=== PATIENT | female | born 1940 | race Caucasian/White ===

== ENCOUNTER 2017-01-03 13:05 | Emergency (ER) | payer MEDICARE, OTHER ==
--- NOTE | 2017-01-03 13:36 | EDM.PDOC ---
ED HPI GENERAL MEDICAL PROBLEM - General Chief Complaint: Trauma Stated Complaint: Fall; Left hip pain Time Seen by Provider: 01/03/17 13:16 Source of Information: Reports: Patient, EMS, EMS Notes Reviewed, RN, RN Notes Reviewed History Limitations: Reports: No Limitations - History of Present Illness INITIAL COMMENTS - FREE TEXT/NARRATIVE: Patient is brought to the ED at [facility] via EMS after she fell, landing on her left hip. Patient states she was stepping off a curb trying to get into her vehicle, when she lost her balance and fell, onto her left hip. Patient complains of left hip pain that radiates down to the left knee. No previous injury or trauma. Patient denies any numbness, tingling, or paresthesia to any extremity. Patient denies hitting her head. No LOC. Onset: Today Onset Date: 01/03/17 Duration: Constant Location: Reports: Pelvis, Lower Extremity, Left Quality: Reports: Sharp, Stabbing Improves with: Reports: Rest Worsens with: Reports: Movement Context: Reports: Trauma Associated Symptoms: Reports: No Other Symptoms Treatments [employer]: Reports: See EMS Report Left Hip Pain Score (Numeric/FACES): 7 - Related Data Allergies Allergy/AdvReac Type Severity Reaction Status Date / Time metformin Allergy Nausea Verified 01/03/17 14:02 Home Meds: Home Meds Aspirin/Calcium Carbonate/Mag [Aspirin Buffered 325 mg Tab] 1 tab DAILY [History] Atenolol/Chlorthalidone [Tenoretic 50] 1 tab DAILY 04/20/14 [History] Calcium Carbonate/Vitamin D3 [Calcium 250+D] 2 each PO DAILY 04/20/14 [History] DULoxetine [Cymbalta] 1 tab DAILY 04/20/14 [History] Hydrocodone/Acetaminophen [Hydrocodon-Acetaminoph 7.5-300] 1 each PO Q6HR PRN [History] Lisinopril [Prinivil] 1 tab DAILY 04/20/14 [History] Magnesium 3 tab DAILY 04/20/14 [History] Multivitamin with Minerals [Multiple Vitamin] 1 tab PO DAILY 04/20/14 [History] Pravastatin [Pravachol] 1 tab DAILY 04/20/14 [History] Review of Systems - Review of Systems Review Of Systems: See Below Constitutional: Denies: Chills, Fever, Weakness Respiratory: Denies: Shortness of Breath, Cough Cardiovascular: Denies: Chest Pain, Palpitations GI/Abdominal: Denies: Abdominal Pain, Nausea, Vomiting Musculoskeletal: Reports: Leg Pain, Joint Pain, Muscle Pain, Muscle Stiffness, Other (Left hip pain) Skin: Reports: No Symptoms Neurological: Denies: Dizziness, Headache, Numbness, Paresthesia, Tingling ED EXAM, GENERAL - Physical Exam Exam: See Below Exam Limited By: No Limitations General Appearance: Alert, No Apparent Distress, Thin Head: Atraumatic, Normocephalic Neck: Supple Respiratory/Chest: No Respiratory Distress, Lungs Clear, Normal Breath Sounds Cardiovascular: Regular Rate, Rhythm Peripheral Pulses: 1+: Posterior Tibial (L), Posterior Tibial (R), Dorsalis Pedis (L), Dorsalis Pedis (R), 2+: Radial (L), Radial (R) GI/Abdominal: Soft, Non-Tender, Abnormal Bowel Sounds (Hypoactive). No: Pelvis Stable Extremities: Leg Pain, Limited Range of Motion, Increased Warmth, Other (Left hip pain with lateral deep palpation; no obvious bone deformity; No bruising; ) . No: Pedal Edema Neurological: Alert, Oriented Course - Vital Signs Last Recorded V/S: Last Vital Signs Temp 35.8 C 01/03/17 13:05 Pulse 74 01/03/17 13:05 Resp 16 01/03/17 13:05 BP 124/74 01/03/17 13:05 Pulse Ox 99 01/03/17 13:05 - Orders/Labs/Meds Orders: Active Orders 24 hr Category Date Time Status Hip Min 2V or 3V w Pelvis Lt [CR] Stat Exams 01/03/17 13:28 Taken Meds: Medications Discontinued Medications Generic Name Dose Route Start Last Admin Trade Name Freq PRN Reason Stop Dose Admin Morphine Sulfate 2 mg 01/03/17 14:21 01/03/17 14:34 Morphine IVPUSH 01/03/17 14:22 2 mg ONETIME ONE Administration - Radiology Interpretation Free Text/Narrative:: Xray of Left hip and Pelvis reveals an Impacted Subcapital fracture of the left hip See scanned report in EMR Departure - Departure Time of Disposition: 15:11 Disposition: DC/Tfer to Acute Hospital 02 Condition: Good Clinical Impression: Pain in left hip Subcapital fracture of hip Qualifiers: Encounter type: initial encounter Fracture type: closed Laterality: left Qualified Code(s): S72.012A - Unspecified intracapsular fracture of left femur, initial encounter for closed fracture Fall Qualifiers: Encounter type: initial encounter Qualified Code(s): W19.XXXA - Unspecified fall, initial encounter - Discharge Information Forms: Interfacility Transfer [facility] ED Communication - ED Communication Date/Time Date: 01/03/17 Time Called: 15:10 - Discussed Case With (1) Discussed Case With (1): Admitting Provider - Conversation Summary Admitting Provider Agreed to Patient's Admission: Yes Patient Aware of Amendments fo Care Plan: Yes Patient's POA/Guardian Aware of Amendments to Care Plan: Yes Summary Comment: Discussed case with Nani Cheng. Patient will need surgical intervention to fix left hip. Patient will be admitted to medicine team. Report given. - Problem List Review Problem List Initiated/Reviewed/Updated: Yes - My Orders Last 24 Hours: My Active Orders 01/03/17 13:28 Hip Min 2V or 3V w Pelvis Lt [CR] Stat - Assessment/Plan Last 24 Hours: My Active Orders 01/03/17 13:28 Hip Min 2V or 3V w Pelvis Lt [CR] Stat
[2017-01-03] MEDS ORDERED: Morphine 2 MG/ML Syringe IVPUSH ONE ×2 (14:21→16:08)
[2017-01-03 15:38] VITALS: BP 128/77
== END 2017-01-03 14:15 | disposition short-term general hospital (02) ==
LOC: VM.ED 13:05
DX: S72.012A Unspecified intracapsular fracture of left femur, initial encounter for closed fracture (principal); Z79.82 Long term (current) use of aspirin; Z79.899 Other long term (current) drug therapy; Z88.8 Allergy status to other drugs, medicaments and biological substances; W17.89XA Other fall from one level to another, initial encounter
CPT/HCPCS: 73502; 96374; 96376; 99284; 99285; J2270

== ENCOUNTER 2017-01-08 10:47 | Inpatient (IN) | payer MEDICARE, OTHER ==
[2017-01-08] MEDS ORDERED: Lactulose Soln 10 GM/15 ML 30 ML UD Cup PO PRN (12:55)
[2017-01-08] MEDS ORDERED: Acetaminophen 325 MG Tab PO PRN (12:55)
[2017-01-08] MEDS: Acetaminophen/HYDROcodone 325-5 MG Tab PO PRN ×2 (13:32→19:43)
--- NOTE | 2017-01-08 21:39 | HP ---
CHIEF COMPLAINT: Deconditioning post left hip surgery. SUMMARY OF ADMIT HISTORY AND PHYSICAL: Patient is a 76-year-old female, who sustained a left hip fracture by either going down a step on a curb versus hip fracturing before she landed on the ground. This had occurred on 01/03/2017. The patient was transferred to [facility] in [place]. She underwent a surgery on 01/04/2017 as they had to make certain that she had medical stability and she has known previous rods in her back. Postoperatively, the patient became quite weak. She did have a hemoglobin that dropped down to 7.1. She was transfused 2 units of packed RBCs. Her hemoglobin the next day was 7.0. Her hemoglobin went up to 9.1. The patient did not have any problems with chest pain. She did have some mild confusion. To note, patient prior to having fallen now had a previous fall that occurred in June to 07/2016. She fell and hit her head on the nightstand, is in bed for 2-3 days. She has chronic low back pain. Then, she had been at a basketball game in 09/2016, had a fall and hit her head again. Since then, she has had problems with some dizziness, some mild forgetfulness, and some headaches. She was seen in the outpatient clinic. She did undergo an MRI of her head on 12/31/2016, and at that time, it came back showing no acute intracranial process, some mild chronic vessel ischemic disease. Otherwise, the patient does have some chronic back pain due to her scoliosis, spinal stenosis that is present. The patient does have problems with skin tears and does have 1 on her left lower groin area that was present when she arrived here today. MEDICATION: She is currently on is acetaminophen 325 two pills every 4 hours as needed; hydrocodone acetaminophen 7.5/325 one every 4 hours as needed for moderate pain, two for severe pain; Lovenox 30 mg subcu daily for 24 additional days; lactulose 10 g per 15 mL, she takes 30 mL 3 times a day as needed for constipation; MiraLAX 1 packet daily; Senna Plus 1 pill twice a day; vitamin D 1000 units 1 pill daily; calcium carbonate 1250 mg 1 pill daily; lisinopril 5 mg 1 pill daily; aspirin with caffeine or Excedrin 1 pill a day as needed; multivitamin 1 pill a day; Pravachol 40 mg 1 pill a day; Cymbalta 60 mg 2 pills once a day; atenolol chlorthalidone 50/25 one pill a day; calcium with vitamin D 500/200 one pill a day; aspirin 325 one pill a day. ALLERGIES: Gabapentin, Glucophage. PAST MEDICAL HISTORY: The patient has hypertension, hyperlipidemia, type 2 diabetes mellitus. She has had gastric bypass. She has had osteoporosis. She had osteopenia in 2011 DEXA scan of her wrist. Due to gastric bypass, repeat DEXA in 2014, it was worse, so she was started on Prolia infusion, but the patient declined and she also declined endocrinology consult. The patient had chronic kidney disease stage 3. She has refused colonoscopies in 2013, 2014, 2015. She has had fibromyalgia, heart disease she coded she states in 2003. She has had a history of pulmonary embolism, hyperlipidemia, hypomagnesemia. She has had non rheumatic mitral regurgitation. Echocardiogram showed trace mitral regurgitation. Ejection fraction 75% in 2003. She had a normal negative Persantine stress test on 03/22/2008. She has had recurrent major depression. Spinal stenosis in her lumbar region on 06/30/2002. She has had left T12-L1 hemilaminectomy and facetectomy. She has had bilateral L1 inferior hemilaminectomies and left-sided facetectomy. She has had an L2 laminectomy with left facetectomy. She had an L1 laminectomy with left-sided facetectomy. She has had L4 laminectomy and right-sided facetectomy. She has had repair of 2 dural tears on L4-5. She has had a T12-L5 pedicle screw fusion. She has had a Medtronic SofGen9or DanClickability Legacy System pedicle screws at each level bilaterally. She has had T12-L5 posterior lateral arthrodesis and autograft bone and allograft bone locally from resected lamina and spinous processes. She has had T12, L1, L2, L3, L4, L5 vertebral augmentation with methylmethacrylate. She has had use of Cell Saver. She has had history of gastric bypass. PAST SURGICAL HISTORY: Anesthesia for hernia repairs. She has had an appendectomy and multiple back surgeries. She has had left cardiac cath in 1997 that was normal. She has had a cholecystectomy in 1977 and gastric bypass in 1977. She had a hysterectomy and a knee arthroscopy. FAMILY MEDICAL HISTORY: Mother had a stroke, hypertension, cancer, heart disease. Maternal grandmother had diabetes. Maternal grandmother had heart disease and hypertension and stroke. Daughters had obesity. Maternal grandmother has had obesity. Maternal grandfather had diabetes, heart disease, hypertension, heart problems. SOCIAL HISTORY: She is . 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 She has children. She has never smoked. Never consumed alcohol. She loves to visit with people. REVIEW OF SYSTEMS: She is having headache, some forgetfulness, change in vision. She does have pain of her left hip as well as have skin tears. Bowels have been regular with use of medications. No coughing, no chest pain. Does have chronic low back pain. No numbness or tingling of her feet. She has been feeling weak. She has occasionally been a little confused. OBJECTIVE: Vital signs: Show that her weight is 136 kg, her temperature is 36.5, pulse is 89, blood pressure 114/95, sats are 98%, respirations are 20. Skin: Pale, warm, and dry. She does have a tear on her left lower abdomen which is 6 cm long x 5 mm wide. No erythema. She has her left hip dressing that is covered minimal serosanguineous drainage. HEENT: Pharynx is normal. Pupils are equal and reactive to light. Neck: No carotid bruits. Heart: Regular rate and rhythm without murmurs or bruits. Lungs: Clear to auscultation. Back: Is kyphotic as well as scoliotic or I should say curved. Abdomen: Bowel sounds present, soft, nontender. Extremities: Lower extremities have no edema. No numbness. Moves all extremities symmetric. Neurologic: She has headaches. Psych: She appears little bit confused or forgetful, does appear little bit sad as well. IMPRESSION: 1. Left hip fracture, recovering from surgery. 2. Anemia secondary to blood loss. 3. Skin tear on left lower abdomen. 4. Headaches, post concussion. 5. Type 2 diabetes mellitus. 6. Osteoporosis. 7. Hypertension. 8. Hypomagnesemia. 9. Fibromyalgia. 10.Chronic low back pain. PLAN: The patient will be admitted to swing bed. She will receive PT/OT, will work with her pain control, her skin tear will cover and monitor and anticipate for her to be discharged home within the next few weeks. Her headaches does seem to be somewhat of a chronic concussive type headache. She may need eventual referral to Neurology for this. When talking about code level status with the patient, she is not certain what she would like to be. She thought she would not like to be resuscitated, but for right now, she would like full resuscitation, so therefore is code level 1 status. The patient will be placed on Lovenox for DVT prophylaxis for 24 days. She will follow up with Ortho. She will also follow up with [facility] to talk about treatment for osteoporosis, as with her previous gastric bypass, infusions may be more appropriate. GM01/08/2017 14:02:36 MODL: 01/08/2017 21:30:40 /[id number]
[2017-01-09] MEDS: Acetaminophen/HYDROcodone 325-5 MG Tab PO PRN ×4 (06:03→21:05)
[2017-01-09] MEDS: Lisinopril 5 MG Tab PO SCH (07:44)
[2017-01-09] MEDS: Multivitamins with Iron/Calcium/Folic Acid/Minerals Tab PO SCH (07:44)
[2017-01-09] MEDS: DULoxetine 60 MG Cap PO SCH (07:45)
[2017-01-09] MEDS: Aspirin 325 MG Tab.EC PO SCH (07:45)
[2017-01-09] MEDS: Enoxaparin 30 MG/0.3 ML Syringe SUBCUT SCH (07:46)
[2017-01-09] MEDS: Polyethylene Glycol 3350 Powder 17 GM Packet PO SCH (07:46)
[2017-01-09] MEDS: Simvastatin 20 MG Tab PO SCH (07:46)
[2017-01-09] MEDS: ATENOLOL PO SCH (11:27)
[2017-01-09] MEDS: CHLORTHALIDONE PO SCH (11:27)
[2017-01-10] MEDS: Acetaminophen/HYDROcodone 325-5 MG Tab PO PRN ×3 (07:53→20:59)
[2017-01-10] MEDS: DULoxetine 60 MG Cap PO SCH (07:54)
[2017-01-10] MEDS: Multivitamins with Iron/Calcium/Folic Acid/Minerals Tab PO SCH (07:54)
[2017-01-10] MEDS: Lisinopril 5 MG Tab PO SCH (07:54)
[2017-01-10] MEDS: Enoxaparin 30 MG/0.3 ML Syringe SUBCUT SCH (07:55)
[2017-01-10] MEDS: Aspirin 325 MG Tab.EC PO SCH (07:55)
[2017-01-10] MEDS: Simvastatin 20 MG Tab PO SCH (07:55)
[2017-01-10] MEDS: Polyethylene Glycol 3350 Powder 17 GM Packet PO SCH (07:55)
[2017-01-10] MEDS: ATENOLOL PO SCH (07:56)
[2017-01-10] MEDS: CHLORTHALIDONE PO SCH (07:56)
[2017-01-10] MEDS: Magnesium Oxide 400 MG Tab PO SCH (08:54)
--- NOTE | 2017-01-10 13:21 | PN ---
Progress Note for MANOLO BARRY Date: 01/10/2017 Room #: VM.206 SUBJECTIVE: The patient says she does have some pain. She comments that she is here for discharge home. She still needs to have some strengthening with PT. To note, patient has been pleasantly confused. She did have a urine check done that did come back negative for bladder infection. The patient has been taking hydrocodone 5 mg strength pill. OBJECTIVE: Vital Signs: Her temperature is 36.6, pulse 72, blood pressure is 143/84, sats are 99%, respiratory rate is 20 on room air. Skin: Her skin is pale, warm and dry. Cardiac: Her heart regular rate and rhythm. Lungs: Clear to auscultation. Abdomen: Bowel sounds present. Extremities: Her left hip is having just some serosanguineous drainage. She still has a skin tear on her left inguinal fold area. LABORATORY DATA: Lab work that was done today showed her hemoglobin at 8.6 which is felt to be stable, white blood cell count, platelet count normal. Sodium 142, potassium 3.6, creatinine 1.1, glucose 114, GFR is 49, and magnesium is low at 1.4. LFTs were normal. IMPRESSION: 1. Deconditioning post left hip fracture. 2. Anemia secondary to blood loss. 3. Skin tear in left abdominal skin fold. 4. Headaches post concussion. 5. Mild confusion. 6. Type 2 diabetes mellitus. 7. Hypertension. 8. Osteoporosis. 9. Hypomagnesemia. 10.Fibromyalgia. 11.Chronic low back pain. PLAN: We will continue with therapies for patient, did encourage her to stay as she will benefit by them. The patient had been placed on Lovenox for DVT prophylaxis. She is placed on magnesium pills for replacement and will continue therapies. GM01/10/2017 12:57:08 MODL: 01/10/2017 13:10:39 /[id number] ALEYDA
[2017-01-11] MEDS: Acetaminophen/HYDROcodone 325-5 MG Tab PO PRN ×3 (04:35→20:15)
[2017-01-11] MEDS: Magnesium Oxide 400 MG Tab PO SCH (07:59)
[2017-01-11] MEDS: DULoxetine 60 MG Cap PO SCH (07:59)
[2017-01-11] MEDS: Multivitamins with Iron/Calcium/Folic Acid/Minerals Tab PO SCH (08:00)
[2017-01-11] MEDS: Aspirin 325 MG Tab.EC PO SCH (08:00)
[2017-01-11] MEDS: Lisinopril 5 MG Tab PO SCH (08:00)
[2017-01-11] MEDS: Simvastatin 20 MG Tab PO SCH (08:01)
[2017-01-11] MEDS: Enoxaparin 30 MG/0.3 ML Syringe SUBCUT SCH (08:01)
[2017-01-11] MEDS: Polyethylene Glycol 3350 Powder 17 GM Packet PO SCH (08:02)
[2017-01-11] MEDS: ATENOLOL PO SCH (08:02)
[2017-01-11] MEDS: CHLORTHALIDONE PO SCH (08:02)
[2017-01-12] MEDS: Acetaminophen/HYDROcodone 325-5 MG Tab PO PRN ×4 (08:59→21:59)
[2017-01-12] MEDS: Multivitamins with Iron/Calcium/Folic Acid/Minerals Tab PO SCH (09:22)
[2017-01-12] MEDS: Magnesium Oxide 400 MG Tab PO SCH (09:22)
[2017-01-12] MEDS: Enoxaparin 30 MG/0.3 ML Syringe SUBCUT SCH (09:23)
[2017-01-12] MEDS: Simvastatin 20 MG Tab PO SCH (09:23)
[2017-01-12] MEDS: Lisinopril 5 MG Tab PO SCH (09:23)
[2017-01-12] MEDS: Aspirin 325 MG Tab.EC PO SCH (09:23)
[2017-01-12] MEDS: ATENOLOL PO SCH (09:24)
[2017-01-12] MEDS: CHLORTHALIDONE PO SCH (09:24)
[2017-01-12] MEDS: DULoxetine 60 MG Cap PO SCH (09:24)
[2017-01-12] MEDS: Polyethylene Glycol 3350 Powder 17 GM Packet PO SCH (09:24)
[2017-01-13] MEDS: Acetaminophen/HYDROcodone 325-5 MG Tab PO PRN ×4 (06:17→22:16)
[2017-01-13] MEDS: Multivitamins with Iron/Calcium/Folic Acid/Minerals Tab PO SCH (08:05)
[2017-01-13] MEDS: Magnesium Oxide 400 MG Tab PO SCH (08:05)
[2017-01-13] MEDS: DULoxetine 60 MG Cap PO SCH (08:05)
[2017-01-13] MEDS: Aspirin 325 MG Tab.EC PO SCH (08:05)
[2017-01-13] MEDS: Simvastatin 20 MG Tab PO SCH (08:05)
[2017-01-13] MEDS: Enoxaparin 30 MG/0.3 ML Syringe SUBCUT SCH (08:06)
[2017-01-13] MEDS: Lisinopril 5 MG Tab PO SCH (08:06)
[2017-01-13] MEDS: Polyethylene Glycol 3350 Powder 17 GM Packet PO SCH (08:07)
[2017-01-13] MEDS: CHLORTHALIDONE PO SCH (08:07)
[2017-01-13] MEDS: ATENOLOL PO SCH (08:07)
[2017-01-14 06:07] VITALS: BP 124/68
[2017-01-14] MEDS: Multivitamins with Iron/Calcium/Folic Acid/Minerals Tab PO SCH (07:46)
[2017-01-14] MEDS: Lisinopril 5 MG Tab PO SCH (07:46)
[2017-01-14] MEDS: Acetaminophen/HYDROcodone 325-5 MG Tab PO PRN ×2 (07:46→12:25)
[2017-01-14] MEDS: Magnesium Oxide 400 MG Tab PO SCH (07:47)
[2017-01-14] MEDS: Aspirin 325 MG Tab.EC PO SCH (07:47)
[2017-01-14] MEDS: Simvastatin 20 MG Tab PO SCH (07:47)
[2017-01-14] MEDS: DULoxetine 60 MG Cap PO SCH (07:47)
[2017-01-14] MEDS: Enoxaparin 30 MG/0.3 ML Syringe SUBCUT SCH (07:49)
[2017-01-14] MEDS: ATENOLOL PO SCH (07:49)
[2017-01-14] MEDS: CHLORTHALIDONE PO SCH (07:49)
[2017-01-14] MEDS: Polyethylene Glycol 3350 Powder 17 GM Packet PO SCH (08:02)
--- NOTE | 2017-01-15 01:01 | DISCH ---
PRIMARY DIAGNOSES: 1. Deconditioning post left hip surgery. 2. Anemia secondary to blood loss. 3. Hypomagnesemia. 4. Osteoporosis. 5. Cognitive dysfunction, which is chronic. 6. Hypertension. 7. Type 2 diabetes mellitus. 8. Chronic constipation. 9. Inguinal left skin tear. 10. Chronic back pain. 11. Scoliosis. 12. Chronic anxiety with depression. DISCHARGE MEDICATIONS: 1. Her medications at the time of discharge will be acetaminophen 325 two q.4 hours p.r.n., acetaminophen with hydrocodone 5/325 one pill every 4 hours as needed. 2. Aspirin 325 one pill daily. 3. Atenolol chlorthalidone 50 mg one pill daily. 4. Cymbalta 60 mg one pill daily. 5. Senokot with docusate one pill twice a day. 6. Enoxaparin 30 mg subcu daily for 18 more doses. 7. Lisinopril 5 mg one pill daily. 8. Magnesium oxide 400 mg one pill daily versus she had some sort of magnesium pill at home. I am not certain what strength that was. 9. Polyethylene glycol 17 g packet daily. 10.Pravastatin 40 mg one pill daily. 11.Aspirin with caffeine Bath and Body tablet one as directed. 12.Calcium carbonate with vitamin D two pills daily. 13.Vitamin D 1000 units one pill daily. 14.Lactulose will be 20 g t.i.d. 15.Multivitamins and minerals. SUMMARY OF ADMIT H AND P: The patient is a 76-year-old female who had fallen, that had occurred on 01/04/2016. She was in [place]. She underwent elective surgery on 01/04. As noted, she has a history of chronic back pain. She did have a hemoglobin back down to 7.1, she had been transfused possibly 2 units of packed RBCs, however, record seems to be variable, hemoglobin had got up to 9.1 on day of discharge. She was noted to have some confusion. To note, she had a head injury, fell in 06/2016. She had undergone an MRI that had just occurred on 12/31/2016, which showed some chronic microvascular changes. SUMMARY OF SWING BED COURSE: The patient received physical therapy. She was noted to have a hemoglobin of 8.6 on admission. It did go up to 8.8. By 01/14/2017, her sodium had been 3.6 the whole time. Her magnesium when she came in had been 1.4, we have placed her on magnesium oxide, it went up to 1.8. The patient was pleasantly confused. She did participate with therapies, was here for discharge home. The patient will continue with her Lovenox shots for 18 days. We will have Home Health see her. The patient is in need of Home Health because of weakness and deconditioning post her hip surgery. The patient uses a walker. If she has pain, she would need to rely on others to get her to the hospital for outpatient therapy, so therefore I will have Physical Therapy at home. She will also need wound care management with tape on her outer incision as well as inguinal skin fold tear.I will monitor the patient in the clinic. The patient is full code level status. The patient will see me in 2 weeks' time for followup. GM01/14/2017 08:39:36 MODL: 01/14/2017 23:43:06 /[id number] ALEYDA
== END 2017-01-14 13:15 | disposition home health service (06) | DRG 560 ==
LOC: VM.MS 12:02
PROVIDERS: ADMIT Family Medicine; ATTEND Family Medicine
DX: S72.002D Fracture of unspecified part of neck of left femur, subsequent encounter for closed fracture with routine healing (principal); D62 Acute posthemorrhagic anemia; E83.42 Hypomagnesemia; M19.90 Unspecified osteoarthritis, unspecified site; R41.841 Cognitive communication deficit; I10 Essential (primary) hypertension; E11.9 Type 2 diabetes mellitus without complications; K59.09 Other constipation; M54.9 Dorsalgia, unspecified; G89.29 Other chronic pain; F41.8 Other specified anxiety disorders; M41.9 Scoliosis, unspecified; S31.119D Laceration without foreign body of abdominal wall, unspecified quadrant without penetration into peritoneal cavity, subsequent encounter; R51 Headache
CPT/HCPCS: 36415; 80048; 80053; 81001; 82962; 83735; 85025; 97110-GP; 97116-GP; 97161-GP; 97165-GO; 97530-GP; 97535-GO; A9270-GY; J1650

== ENCOUNTER 2017-09-12 08:08 | Emergency (ER) | payer MEDICARE ==
[2017-09-12 08:28] VITALS: BP 168/90
--- NOTE | 2017-09-12 08:57 | EDM.PDOC ---
ED HPI GENERAL MEDICAL PROBLEM - General Chief Complaint: Upper Extremity Injury/Pain Stated Complaint: fell out of bed Time Seen by Provider: 09/12/17 08:45 Source of Information: Reports: Patient, RN, RN Notes Reviewed History Limitations: Reports: No Limitations - History of Present Illness INITIAL COMMENTS - FREE TEXT/NARRATIVE: Patient presents to the ED at [facility] after she sustained a fall at home. Patient complains of left shoulder pain. Patient states she slipped and fell while getting out of bed. Onset: Today Duration: Waxing/Waning Location: Reports: Upper Extremity, Left Quality: Reports: Throbbing Severity: Mild Improves with: Reports: Rest Worsens with: Reports: Movement Context: Reports: Trauma Associated Symptoms: Reports: No Other Symptoms Left Shoulder Pain Score (Numeric/FACES): 9 - Related Data Allergies Allergy/AdvReac Type Severity Reaction Status Date / Time metformin AdvReac Nausea Verified 09/12/17 08:49 Home Meds: Home Meds Atenolol/Chlorthalidone [Tenoretic 50] 1 tab PO DAILY 04/20/14 [History] Calcium Carbonate/Vitamin D3 [Calcium 250+D] 2 tab PO DAILY 04/20/14 [History] DULoxetine [Cymbalta] 120 mg PO DAILY 04/20/14 [History] Multivitamin with Minerals [Multiple Vitamin] 1 tab PO DAILY 04/20/14 [History] Pravastatin [Pravachol] 40 mg PO DAILY 04/20/14 [History] Acetaminophen 650 mg PO Q4H PRN 01/08/17 [History] Aspirin [Ecotrin] 325 mg PO DAILY 01/08/17 [History] Naproxen Sodium [Aleve] 220 mg PO BID PRN 09/12/17 [History] Past Medical History Cardiovascular History: Reports: Hypertension Musculoskeletal History: Reports: Fracture Hematologic History: Reports: Anemia - Past Surgical History Cardiovascular Surgical History: Reports: None GI Surgical History: Reports: Bariatric Procedure, Hernia, Abdominal Female Surgical History: Reports: Hysterectomy Neurological Surgical History: Reports: Lumbar Spine Musculoskeletal Surgical History: Reports: ORIF Social & Family History - Tobacco Use Smoking Status *Q: Never Smoker Second Hand Smoke Exposure: No - Caffeine Use Caffeine Use: Reports: Coffee - Recreational Drug Use Recreational Drug Use: No Review of Systems - Review of Systems Review Of Systems: See Below Constitutional: Denies: Chills, Fever Respiratory: Denies: Shortness of Breath, Cough Cardiovascular: Denies: Chest Pain, Palpitations Musculoskeletal: Reports: Shoulder Pain (Left) Skin: Reports: No Symptoms Neurological: Reports: No Symptoms ED EXAM, GENERAL - Physical Exam Exam: See Below Exam Limited By: No Limitations General Appearance: Alert, No Apparent Distress Head: Atraumatic, Normocephalic Neck: Supple Respiratory/Chest: No Respiratory Distress, Lungs Clear, Normal Breath Sounds Cardiovascular: Normal Peripheral Pulses, Regular Rate, Rhythm Peripheral Pulses: 2+: Radial (L), Radial (R) Extremities: Normal Capillary Refill, Arm Pain (Left), Limited Range of Motion Neurological: Alert, Oriented Skin Exam: Warm, Dry, Intact, Normal Color Course - Vital Signs Last Recorded V/S: Last Vital Signs Temp 36.1 C 09/12/17 08:24 Pulse 72 09/12/17 08:24 Resp 16 09/12/17 08:24 BP 168/90 H 09/12/17 08:24 Pulse Ox 100 09/12/17 08:24 - Orders/Labs/Meds Orders: Active Orders 24 hr Category Date Time Status Shoulder Comp Lt [CR] Stat Exams 09/12/17 08:22 Taken Meds: Medications Discontinued Medications Generic Name Dose Route Start Last Admin Trade Name Dawitq PRN Reason Stop Dose Admin Acetaminophen 1,000 mg 09/12/17 09:59 09/12/17 10:14 Tylenol Extra Strength PO 09/12/17 10:00 1,000 mg ONETIME ONE Administration Departure - Departure Time of Disposition: 10:50 Disposition: Home, Self-Care 01 Condition: Good Clinical Impression: Humeral head fracture Qualifiers: Encounter type: initial encounter Fracture type: closed Laterality: left Qualified Code(s): S42.292A - Other displaced fracture of upper end of left humerus, initial encounter for closed fracture - Discharge Information Instructions: Humerus Fracture Treated With Immobilization Referrals: Kelsey Keita MD [Primary Care Provider] - Mart Valle MD [Ordering Only Provider] - Forms: ED Department Discharge Additional Instructions: 1. Stay well hydrated and rest 2. Elevate and ice shoulder several times a day 3. May alternate Tylenol/Advil as needed for pain 4. Follow up with Orthopedics as directed 5. Call with any questions/concerns 6. Wear sling at all times; use limited movement 7. You are scheduled to see Dr. Mart Valle on September 25 at 1:45pm at [facility] for [facility]ics follow up ED Communication - ED Communication Date/Time Date: 09/12/17 Time Called: 10:30 - Discussed Case With (1) Discussed Case With (1): Outpatient Provider (Dr. Wong, Ortho. Recommend sling and f/u with Ortho in [place] in next couple weeks.) - Problem List Review Problem List Initiated/Reviewed/Updated: Yes - My Orders Last 24 Hours: My Active Orders 09/12/17 08:22 Shoulder Comp Lt [CR] Stat - Assessment/Plan Last 24 Hours: My Active Orders 09/12/17 08:22 Shoulder Comp Lt [CR] Stat Assessment:: L humerus head fracture Plan: Patient will be placed in a sling and advised to rest and elevate left arm/ shoulder. Spoke with Dr. Wong [facility] [place]. Will follow up in next couple days.
[2017-09-12] MEDS: Acetaminophen 500 MG Tab PO ONE (10:14)
== END 2017-09-12 11:05 | disposition home or self-care (01) ==
LOC: VM.ED 08:08
DX: S42.215A Unspecified nondisplaced fracture of surgical neck of left humerus, initial encounter for closed fracture (principal); I10 Essential (primary) hypertension; Z88.8 Allergy status to other drugs, medicaments and biological substances; Z79.899 Other long term (current) drug therapy; Z79.82 Long term (current) use of aspirin; W19.XXXA Unspecified fall, initial encounter; Y92.009 Unspecified place in unspecified non-institutional (private) residence as the place of occurrence of the external cause
CPT/HCPCS: 73030-LT; 99283; A9270-GY